=== PATIENT | male | born 1990 | race Caucasian/White ===

== ENCOUNTER 2016-10-11 16:03 | Emergency (ER) | payer OTHER ==
[2016-10-11 16:10] VITALS: BP 139/70
[2016-10-11] MEDS ORDERED: AZITHROMYCIN 250 MG TABLET PO STA (16:33)
[2016-10-11] MEDS ORDERED: cefTRIAXone 250 MG VIAL IM STA (16:33)
--- NOTE | 2016-10-11 16:35 | ED Physician Documentation ---
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 States he has mild dysuria. No other acute symptoms. He did not use a condom during intercourse with the other libertarian involved Review of Systems Constitutional: denies: Fever, Chills Respiratory: denies: Cough GI: denies: Nausea, Vomiting : denies: Incontinent, Hematuria, Discharge, Testicular pain, Testicular mass Skin: denies: Rash Musculoskeletal: denies: Neck pain, Back pain Neurologic: denies: Headache PD PAST MEDICAL HISTORY - Past Medical History Past Medical History: No - Past Surgical History Past Surgical History: No - Present Medications Home Medications: Ambulatory Orders Medication Instructions Recorded Confirmed No Known Home Medications [No 10/11/16 10/11/16 Known Home Medications] - Allergies Allergies/Adverse Reactions: Allergies Allergy/AdvReac Type Severity Reaction Status Date / Time No Known Drug Allergies Allergy Verified 10/11/16 16:10 PD ED PE NORMAL - Vitals Vital signs reviewed: Yes - General General: Alert and oriented X 3, No acute distress, Well developed/nourished - HEENT HEENT: Moist mucous membranes - Neck Neck: Supple, no meningeal sign - Cardiac Cardiac: RRR, No murmur - Respiratory Respiratory: No respiratory distress, Clear bilaterally - Abdomen Abdomen: Soft, Non tender, Non distended - Male Male : Other (normal exam, no rashes, no lesions, no masses) - Derm Derm: Warm and dry - Neuro Neuro: Alert and oriented X 3 - Psych Psych: Normal mood, Normal affect Results - Vitals Vitals: Vital Signs - 24 hr 10/11/16 16:07 Temperature 36.7 C Heart Rate 75 Respiratory 16 Rate Blood Pressure 139/70 H O2 Saturation 99 Oxygen O2 Source Room air PD MEDICAL DECISION MAKING - ED course Complexity details: considered differential, d/w patient ED course: Patient is a 26-year-old male with exposure to chlamydia, given Rocephin and azithromycin 1 g p.o. here. Will have him follow-up with his doctor to ensure clearance. Counseled to use condoms for sexual activity. Patient counseled regarding signs and symptoms for which I believe and urgent re-evaluation would be necessary. Patient with good understanding of and agreement to plan and is comfortable going home at this time This document was made in part using voice recognition software. While efforts are made to proofread this document, sound alike and grammatical errors may occur. Departure - Departure Disposition: 01 Home, Self Care Clinical Impression: STD exposure Condition: Good Instructions: ED STD Male Treated Follow-Up: your,doctor in 1 week [Other] Comments: Return if you worsen. You should use condoms for any sexual activity. You should also be retested at the end of treatment to ensure clearance of the infection. Your urine was sent for gonorrhea and Chlamydia testing today. Your blood pressure was elevated today on check in to the emergency department. This does not mean that you have hypertension, it is a common phenomenon to check into the emergency department and have elevated blood pressure. I recommend that you see your primary care physician within the week to have it rechecked when you're feeling better. Discharge Date/Time: 10/11/16 16:59
[2016-10-11] MEDS ORDERED: AZITHROMYCIN 250 MG TABLET PO ONE (16:45)
[2016-10-11] MEDS ORDERED: cefTRIAXone 250 MG VIAL ONE (16:45)
[2016-10-11] MEDS ORDERED: LIDOCAINE 1% 2 ML VIAL ONE (16:45)
== END 2016-10-11 16:59 | disposition home or self-care (01) ==
LOC: ED 16:03
DX: Z20.2 Contact with and (suspected) exposure to infections with a predominantly sexual mode of transmission (principal); R03.0 Elevated blood-pressure reading, without diagnosis of hypertension
CPT/HCPCS: 87491; 87591; 96372; 99283; A9270

== ENCOUNTER 2019-04-02 09:28 | Emergency (ER) | payer OTHER ==
[2019-04-02 10:31] LABS: BILIRUBIN,URINE NEGATIVE (NEGATIVE); GLUCOSE, URINE (UA) NEGATIVE (NEGATIVE); KETONES,URINE (UA) NEGATIVE (NEGATIVE); LEUKOCYTE ESTERASE, URINE NEGATIVE (NEGATIVE); NITRITE,URINE NEGATIVE (NEGATIVE); OCCULT BLOOD,URINE NEGATIVE (NEGATIVE); PH,URINE 7.5 PH (5.0-7.5); PROTEIN,URINE NEGATIVE (NEGATIVE); UROBILINOGEN,URINE 0.2 (NORMAL) E.U./dL (NORMAL)
[2019-04-02 10:35] LABS: CLARITY,URINE CLEAR (CLEAR)
--- NOTE | 2019-04-02 10:38 | ED Physician Documentation ---
PD HPI MALE - Stated complaint Stated Complaint: MALE - Chief complaint Chief Complaint: UTI - History obtained from History obtained from: Patient - History of Present Illness Timing - onset: How many days ago (10) Timing - duration: Days (10) Associated symptoms: Dysuria, Discharge. No: Hematuria, Testiclar pain PD HPI MALE CONTRIB FACTORS: Sexually active Recently seen: Not recently seen - Additional information Additional information: This is a 28-year-old who had a recent exposure of unprotected sex with someone and he thinks he may have chlamydia. He has been having a discharge inside of his underwear for the past week and a half. There is floating things in the urine in the toilet bowl. He was treated for chlamydia couple years ago. Denies testicular pain or abdominal pain. Review of Systems Constitutional: denies: Fever GI: denies: Abdominal Pain : reports: Dysuria, Discharge. denies: Hematuria, Testicular pain PD PAST MEDICAL HISTORY - Past Medical History Past Medical History: No - Past Surgical History Past Surgical History: No - Present Medications Home Medications: Ambulatory Orders Medication Instructions Recorded Confirmed Doxycycline Hyclate 100 mg PO BID #14 capsule 04/02/19 - Allergies Allergies/Adverse Reactions: Allergies Allergy/AdvReac Type Severity Reaction Status Date / Time No Known Drug Allergies Allergy Verified 04/02/19 09:36 - Social History Does the pt smoke?: No Smoking Status: Never smoker - Immunizations Immunizations are current?: Yes PD ED PE NORMAL - Vitals Vital signs reviewed: Yes - General General: Alert and oriented X 3, No acute distress, Well developed/nourished - HEENT HEENT: PERRL, EOMI - Cardiac Cardiac: RRR - Respiratory Respiratory: No respiratory distress Results - Vitals Vitals: Vital Signs - 24 hr 04/02/19 09:33 Temperature 37 C Heart Rate 60 Respiratory 18 Rate Blood Pressure 144/78 H O2 Saturation 100 Oxygen O2 Source Room air - Labs Labs: Laboratory Tests 04/02/19 09:40 Urine Color YELLOW Urine Clarity CLEAR Urine pH 7.5 Ur Specific [place] 1.020 Urine Protein NEGATIVE Urine Glucose (UA) NEGATIVE Urine Ketones NEGATIVE Urine Occult Blood NEGATIVE Urine Nitrite NEGATIVE Urine Bilirubin NEGATIVE Urine Urobilinogen 0.2 (NORMAL) Ur Leukocyte Esterase NEGATIVE Ur Microscopic Review NOT INDICATED Urine Culture Comments NOT INDICATED PD MEDICAL DECISION MAKING - ED course Complexity details: d/w patient ED course: Urine for gonorrhea and Chlamydia testing was obtained. Patient will be treated with Rocephin 250 mg IM and doxycycline 100 mg twice daily. He should not have unprotected sex until he has been completely treated and he states understanding. Departure - Departure Disposition: Home, Self Care Clinical Impression: STD exposure Condition: Good Instructions: ED STD Male Treated Follow-Up: BECKY CENTENO MD [Primary Care Provider] - Prescriptions: Doxycycline Hyclate 100 mg PO BID #14 capsule Comments: You should not have unprotected sex until you have been completely treated for the STI. You should use protection during sexual intercourse in the future to prevent STIs. Follow-up with your primary care provider if the symptoms persist.
[2019-04-02] MEDS ORDERED: cefTRIAXone 250 MG VIAL IM STA (10:55)
[2019-04-02] MEDS ORDERED: LIDOCAINE 1% 2 ML VIAL MC ONE (10:55)
[2019-04-02 11:31] VITALS: BP 121/74
== END 2019-04-02 11:30 | disposition home or self-care (01) ==
LOC: ED 09:28
DX: R30.0 Dysuria (principal); R36.9 Urethral discharge, unspecified; Z20.2 Contact with and (suspected) exposure to infections with a predominantly sexual mode of transmission
CPT/HCPCS: 81001; 81003; 87086; 87491; 87591; 87661; 96372; 99283; 99284